=== PATIENT | female | born 1935 | race Caucasian/White ===

== ENCOUNTER 2020-01-02 01:00 | Emergency (ER) | payer OTHER ==
[2020-01-02 01:20] VITALS: TEMP 97.5; BMI 37.2
--- NOTE | 2020-01-02 01:41 | PDOC ---
History of Present Illness - History of Present Illness Initial Comments: The pt is an 84F w/ a history of HTN, HLD, IDDM who presents for evaluation of HTN. Pt denies vision changes, ALEMAN, SOB, N/V, abdominal pain Pt reports being compliant with meds. However she reports a high salt diet. Recently had Hydralazine and extra dose of Lasix added. Pt states that she felt slightly short of breath yesterday. Denies fevers, cough, dysuria, hematuria, rash. 01/02/20 01:40 <Al Rivers - Last Filed: 01/02/20 06:17> <Apryl Jackson - Last Filed: 01/02/20 06:40> - General Chief Complaint: Blood Pressure Problem Stated Complaint: BLOOD PRESSURE PROBLEM Past History - Past Medical History Diabetes: Yes HTN: Yes Hypercholesterolemia: Yes - Psycho Social/Smoking Cessation Hx Smoking History: Never smoked Have you smoked in the past 12 months: No Information on smoking cessation initiated: No Hx Alcohol Use: No Drug/Substance Use Hx: No <Al Rivers - Last Filed: 01/02/20 06:17> <Apryl Jackson - Last Filed: 01/02/20 06:40> - Past Medical History Allergies/Adverse Reactions: Allergies Allergy/AdvReac Type Severity Reaction Status Date / Time nitrofurantoin Allergy Verified 01/02/20 01:13 [From Macrobid] Sulfa (Sulfonamide Allergy Verified 01/02/20 01:13 Antibiotics) Home Medications: Ambulatory Orders Allopurinol [Zyloprim -] 1 tab PO DAILY 10/19/15 Aspirin Coated [Ecotrin -] 81 mg PO DAILY 10/19/15 Atorvastatin Ca [Lipitor -] 40 mg PO HS 10/19/15 Canagliflozin [Invokana] 100 mg PO DAILY 10/19/15 Carvedilol [Coreg] 12.5 mg PO BID 10/19/15 Diclofenac Sodium [Diclofenac Sodium ER] 100 mg PO ACBK 10/19/15 Ergocalciferol [Drisdol -] 50,000 unit PO Q7D@1000 10/19/15 Esomeprazole Mag Trihydrate [Nexium] 40 mg PO DAILY 10/19/15 Furosemide [Lasix -] 40 mg PO DAILY 10/19/15 Glipizide [Glucotrol Xl] 10 mg PO AC 10/19/15 Meclizine HCl [Antivert -] 12.5 mg PO HS 10/19/15 Mirabegron [Myrbetriq] 25 mg PO DAILY 10/19/15 Potassium Chloride [K-Dur] 10 meq PO DAILY 10/19/15 Sitagliptin Phos/Metformin HCl [Janumet Xr 50-1,000 mg Tablet] 1 each PO AC 07/26 Valsartan [Diovan] 320 mg PO DAILY 10/19/15 Review of Systems - Review of Systems Able to Perform ROS?: Yes Comments:: GENERAL/CONSTITUTIONAL: No fever or chills. No weakness HEAD, EYES, EARS, NOSE AND THROAT: No change in vision. No change in hearing. No sore throat CARDIOVASCULAR: No chest pain RESPIRATORY: Denies cough, hemoptysis GASTROINTESTINAL: No nausea, vomiting, diarrhea or constipation GENITOURINARY: No dysuria, frequency, or change in urination MUSCULOSKELETAL: No joint or muscle swelling or pain. No neck or back pain SKIN: No rash NEUROLOGIC: No headache, vertigo, loss of consciousness, or change in strength/ sensation ENDOCRINE: No increased thirst. No abnormal weight change HEMATOLOGIC/LYMPHATIC: No anemia, easy bleeding, or history of blood clots ALLERGIC/IMMUNOLOGIC: No hives or skin allergy 01/02/20 01:41 Is the patient limited Persian proficient: No <Al Rivers - Last Filed: 01/02/20 06:17> *Physical Exam - Vital Signs Last Vital Signs Temp Pulse Resp BP Pulse Ox 97.5 F L 60 32 H 213/65 H 01/02/20 01:13 01/02/20 01:13 01/02/20 01:13 01/02/20 01:13 - Physical Exam GENERAL: Awake, alert, and oriented to person/place/time, in no acute distress HEAD: No signs of trauma, normocephalic, atraumatic EYES: PERRLA, EOMI, sclera anicteric, conjunctiva clear ENT: Hearing grossly normal, nares patent, oropharynx clear without exudates. Moist mucosa LUNGS: No distress, speaks in full sentences, clear to auscultation bilaterally HEART: Regular rate and rhythm, normal S1 and S2, no murmurs appreciated, peripheral pulses normal and equal bilaterally ABDOMEN: Soft, nontender, normoactive bowel sounds. No guarding, no rebound EXTREMITIES: Normal inspection, Normal range of motion, no edema. No clubbing or cyanosis NEUROLOGICAL: Cranial nerves II through XII grossly intact. Normal speech, no focal sensorimotor deficits SKIN: Warm, Dry 01/02/20 01:41 <Al Rivers - Last Filed: 01/02/20 06:17> - Vital Signs Last Vital Signs Temp Pulse Resp BP Pulse Ox 97.5 F L 64 19 173/61 H 100 01/02/20 01:13 01/02/20 06:15 01/02/20 06:15 01/02/20 06:15 01/02/20 06:15 <Apryl Jackson - Last Filed: 01/02/20 06:40> ED Treatment Course - LABORATORY CBC & Chemistry Diagram: 01/02/20 02:20 01/02/20 02:20 <Al Rivers - Last Filed: 01/02/20 06:17> - LABORATORY CBC & Chemistry Diagram: 01/02/20 02:20 01/02/20 02:20 - ADDITIONAL ORDERS Additional order review: Laboratory Results 01/02/20 01/02/20 01/02/20 05:10 02:20 02:20 Sodium 143 Potassium 4.3 Chloride 108 H Carbon Dioxide 32 Anion Gap 3 L BUN 36.8 H Creatinine 1.4 H Est GFR (CKD-EPI)AfAm 39.33 Est GFR (CKD-EPI)NonAf 33.94 Random Glucose 156 H Calcium 9.7 Total Bilirubin 0.7 AST 26 ALT 27 Alkaline Phosphatase 153 H Troponin I 0.04 0.04 Total Protein 7.1 Albumin 3.9 01/02/20 02:20 RBC 4.39 MCV 86.7 MCHC 33.4 RDW 15.5 MPV 8.8 Neutrophils % 52.0 Lymphocytes % 37.1 Monocytes % 8.4 Eosinophils % 1.8 Basophils % 0.7 - Medications Given in the ED: ED Medications Discontinued Medications Generic Name Dose Route Start Last Admin Trade Name Freq PRN Reason Stop Dose Admin Furosemide 40 mg 01/02/20 03:42 01/02/20 04:12 Lasix Injection - IVPUSH 01/02/20 03:43 40 mg ONCE ONE Administration Nitroglycerin 0.4 mg 01/02/20 01:55 01/02/20 02:42 Nitrostat - SL 01/02/20 01:56 0.4 mg ONCE ONE Administration <Apryl Jackson - Last Filed: 01/02/20 06:40> Medical Decision Making - Medical Decision Making The pt is an 84F w/ a history of HTN, HLD, IDDM who presents for evaluation of HTN w/ SOB yesterday ED Course CMP, CBC, Trop I ECG CXR ECG w/ sinus faith; HR 56; QTc 436; no axis deviation; no PARAS Initial Trop I neg Lytes unremarkable Cr at baseline LFTs wnl CXR w/ poor inspiratory effort, no focal infiltrate, no effusion Will repeat Trop I Pt continues to be asymptomatic 01/02/20 05:05 Pt to follow up with her Patient Services Rep on Saturday Plan for D/C w/ Cards/PCP f/u Discharge instructions and return precautions given Patient in agreement and verbalized understanding Dispo: Home <Al Rivers - Last Filed: 01/02/20 06:17> Discharge - Discharge Information Problems reviewed: Yes - Admission No <Al Rivers - Last Filed: 01/02/20 06:17> <Apryl Jackson - Last Filed: 01/02/20 06:40> - Discharge Information Clinical Impression/Diagnosis: Hypertension Qualifiers: Hypertension type: unspecified Qualified Code(s): I10 - Essential (primary) hypertension Condition: Stable - Follow up/Referral Referrals: Barney Wyman [Primary Care Provider] - - Patient Discharge Instructions Patient Printed Discharge Instructions: DI for High Blood Pressure Additional Instructions: You were seen in the Emergency Department for evaluation of high blood pressure. Your labs were unremarkable. Review the handout provided at discharge. Maintain your follow up Saturday with your doctor. Return to the Emergency Department if you develop fevers, chest pain, trouble breathing, worsening symptoms, or any new/concerning symptoms. Lo vieron en el departamento de emergencias para evaluar la presin arterial jeovany. Radha laboratorios no fueron notables. Revise el folleto proporcionado al jeovany. Mantenga bradshaw seguimiento el con bradshaw mdico. Regrese al Departamento de Emergencias si desarrolla fiebre, dolor en el pecho, dificultad para respirar, empeoramiento de los sntomas o cualquier sntoma nuevo o preocupante. Print Language: LEBANESE - Post Discharge Activity Work/Back to School Note: Back to Work
[2020-01-02] MEDS ORDERED: NITROGLYCERIN SUBLINGUAL 1/150 0.4 MG TAB SL ONE (01:55)
[2020-01-02 02:29] LABS: BASO % 0.7 % (0-2.0); EOS % 1.8 % (0-4.5); HEMATOCRIT 38.1 % (32.4-45.2); HEMOGLOBIN 12.7 GM/dL (10.7-15.3); LYMPH % 37.1 % (8-40); MCHC 33.4 g/dl (32.0-36.0); MEAN CELL VOLUME 86.7 fl (80-96); MEAN PLT VOLUME 8.8 fl (7.5-11.1); MONO % 8.4 % (3.8-10.2); PLATELET COUNT 174 K/MM3 (134-434); RBC 4.39 M/mm3 (3.60-5.2); RDW 15.5 % (11.6-15.6); WHITE BLOOD COUNT 8.8 K/mm3 (4.0-10.0)
[2020-01-02] MEDS ORDERED: NITROGLYCERIN SUBLINGUAL 1/150 0.4 MG TAB ONE (02:37)
[2020-01-02 02:51] VITALS: PULSE 64
[2020-01-02 03:09] LABS: ALBUMIN 3.9 g/dl (3.4-5.0); BILIRUBIN,TOTAL 0.7 mg/dL (0.2-1); BLOOD UREA NITROGEN 36.8 mg/dL (7-18); CALCIUM 9.7 mg/dL (8.5-10.1); CREATININE 1.4 mg/dL (0.55-1.3); POTASSIUM 4.3 mmol/L (3.5-5.1); TOT PROT 7.1 g/dl (6.4-8.2)
[2020-01-02] MEDS ORDERED: FUROSEMIDE 40 MG/4 ML INJECTABLE VIAL IVPUSH ONE (03:42)
--- NOTE | 2020-01-02 03:45 | PDOC ---
Attending Attestation - Resident Resident Name: Al Rivers - ED Attending Attestation I have performed the following: I have examined & evaluated the patient, The case was reviewed & discussed with the resident, I agree w/resident's findings & plan - HPI HPI: 01/02/20 03:44 Pt comes with SOB and shoulder discomfort and non complaince with her lasix. She is complaint with her hydralazine, coreg and diovan. - Physicial Exam PE: 01/02/20 03:51 Bilat lower lobes: crackles Pt has minimal pitting edema Pt has no fever and no chills. SHe has no SOB; however pulsox odd O2 is 92%-95% Pt has normal lung sounds HR RRR neuro intact - Medical Decision Making 01/02/20 06:43 Pt's BP has come down to 150-170 systolic. Pt was treated with a dose of 40mg IV lasix Pt will be sent home with cardiology follow up Saturday AM as previously scheduled.
[2020-01-02] MEDS ORDERED: FUROSEMIDE 40 MG/4 ML INJECTABLE VIAL ONE (04:08)
[2020-01-02 06:28] VITALS: BP 173/61
--- NOTE | 2020-01-02 10:33 | EKG ---
Test Reason : Blood Pressure : / mmHG Vent. Rate : 056 BPM Atrial Rate : 056 BPM P-R Int : 116 ms QRS Dur : 080 ms QT Int : 452 ms P-R-T Axes : 015 -07 025 degrees QTc Int : 436 ms SINUS BRADYCARDIA OTHERWISE NORMAL ECG WHEN COMPARED WITH ECG OF 07-MAR-2011 13:25, NO SIGNIFICANT CHANGE WAS FOUND Confirmed by BINA CHOUDHARY MD ([id number]) on 01/02/2020 10:33:29 AM Referred By: Confirmed By:BINA CHOUDHARY MD
== END 2020-01-02 06:55 | disposition home or self-care (01) ==
LOC: JER 01:00
PROC: 3E033GC Introduction of Other Therapeutic Substance into Peripheral Vein, Percutaneous Approach (ICD-10-PCS; principal; 2020-01-02)
DX: I10 Essential (primary) hypertension (principal); E78.5 Hyperlipidemia, unspecified; E11.9 Type 2 diabetes mellitus without complications; Z79.84 Long term (current) use of oral hypoglycemic drugs; Z88.2 Allergy status to sulfonamides
CPT/HCPCS: 36415; 71045-TC-FY; 80053; 84484; 85025; 93005; 93010; 96374; 99285-25

== ENCOUNTER 2021-11-18 20:40 | Inpatient (IN) | payer OTHER ==
[2021-11-18] MEDS ORDERED: RAPID SEQUENCE INTUBATION KIT NR ONE (20:47)
[2021-11-18] MEDS ORDERED: PROPOFOL 1,000,000 MCG/100 ML VIAL ONE (21:10)
[2021-11-18] MEDS ORDERED: CALCIUM GLUCONATE 10% - 1,000 MG/10 ML VIAL ONE ×2 (21:21→23:17)
[2021-11-18 21:41] LABS: BASO % 0.4 % (0-2.0); EOS % 1.4 % (0-4.5); HEMATOCRIT 34.2 % (32.4-45.2); HEMOGLOBIN 11.5 GM/dL (10.7-15.3); LYMPH % 27.7 % (8-40); MCH 29.9 pg (25.7-33.7); MCHC 33.6 g/dl (32.0-36.0); MEAN PLT VOLUME 9.3 fl (7.5-11.1); MONO % 5.3 % (3.8-10.2); NEUT % 65.2 % (42.8-82.8); PLATELET COUNT 145 10^3/uL (134-434); RBC 3.84 M/mm3 (3.60-5.2); RDW 14.2 % (11.6-15.6); WHITE BLOOD COUNT 10.4 K/mm3 (4.0-10.0)
[2021-11-18] MEDS ORDERED: GLUCAGON 1 MG KIT IVPUSH ONE ×2 (21:46→21:58)
[2021-11-18] MEDS ORDERED: GLUCAGON 1 MG KIT ONE (21:47)
[2021-11-18] MEDS ORDERED: ATROPINE SULFATE 1 MG/10 ML DISP.SYRIN ONE (21:49)
[2021-11-18 21:51] LABS: INR 1.12 (0.83-1.09); PROTHROMBIN TIME (PATIENT) 12.9 SEC (9.7-13.0)
[2021-11-18 21:54] LABS: ACTIVATED PTT 33.5 SECONDS (25.2-36.5)
[2021-11-18] MEDS ORDERED: ATROPINE SULFATE 1 MG/10 ML DISP.SYRIN IVPUSH ONE ×3 (21:59)
[2021-11-18 22:02] LABS: CHLORIDE 96 mmol/L (98-107); SODIUM 128 mmol/L (136-145)
[2021-11-18 22:04] LABS: ALBUMIN 3.5 g/dl (3.4-5.0); CALCIUM 8.5 mg/dL (8.5-10.1); CO2 25 mmol/L (21-32); GLUCOSE,RANDOM 124 mg/dL (74-106)
[2021-11-18 22:05] LABS: BLOOD UREA NITROGEN 59.2 mg/dL (7-18); MAGNESIUM 2.7 mg/dL (1.8-2.4)
[2021-11-18 22:07] LABS: CREATININE 2.5 mg/dL (0.55-1.3); SGOT/AST 113 U/L (15-37); SGPT/ALT 129 U/L (13-61)
[2021-11-18 22:09] LABS: TOT PROT 6.8 g/dl (6.4-8.2)
[2021-11-18 22:10] LABS: ALK PHOS 189 U/L (45-117)
[2021-11-18 22:15] LABS: BILIRUBIN,TOTAL 1.2 mg/dL (0.2-1)
[2021-11-18 22:21] LABS: ANION GAP 7 MMOL/L (8-16); LACTIC ACID 3.3 mmol/L (0.4-2.0)
[2021-11-18] MEDS ORDERED: CALCIUM GLUCONATE 10% - 1,000 MG/10 ML VIAL IVPUSH ONE (22:26)
[2021-11-18] MEDS ORDERED: INSULIN REGULAR HUMAN 100 UNITS/ML *VIAL IVPUSH ONE (22:26)
[2021-11-18] MEDS ORDERED: DEXTROSE 50%-WATER - 25 GM/50 ML VIAL IVPUSH ONE (22:26)
[2021-11-18] MEDS: NOREPINEPHRINE D5W PREMIX 16,000 MCG/500 ML BAG IVPB SCH (22:28)
[2021-11-18] MEDS: PROPOFOL 1,000,000 MCG/100 ML VIAL IVPB SCH (22:37)
[2021-11-18 22:54] LABS: ARTERIAL BLD GAS O2 SATURATION 96.4 % (95-98); ARTERIAL BLOOD GAS BASE EXCESS -8.1 mmol/L (-2-2); ARTERIAL BLOOD GAS PO2 115.1 mmHg (80-100)
[2021-11-18 22:57] LABS: ALLENS TEST POSITIVE; VENT MODE A/C; VENT RATE 16
[2021-11-18 23:00] LABS: ARTERIAL BLOOD GAS pH 7.103 (7.350-7.450)
[2021-11-18] MEDS ORDERED: FUROSEMIDE 40 MG/4 ML INJECTABLE VIAL IVPUSH ONE (23:04)
[2021-11-18] MEDS ORDERED: SODIUM CHLORIDE 0.9% 500 ML INFUS.BAG IV ONE (23:16)
[2021-11-18] MEDS ORDERED: SODIUM BICARBONATE 8.4% 50 MEQ/50 ML VIAL IV ONE (23:16)
[2021-11-18] MEDS ORDERED: CALCIUM GLUC IN NACL, ISO-OSM 1 GM/50 ML BAG IVPB ONE (23:16)
[2021-11-18] MEDS ORDERED: ALBUTEROL SO4 2.5/IPRATROPIUM 0.5 INH SOL 3 ML VIAL.NEB. NEB ONE (23:17)
[2021-11-18] MEDS ORDERED: SODIUM BICARBONATE 8.4% - 50 ML ONE (23:18)
[2021-11-18] MEDS ORDERED: FUROSEMIDE 40 MG/4 ML INJECTABLE VIAL ONE (23:18)
[2021-11-18] MEDS: ALBUTEROL SO4 2.5/IPRATROPIUM 0.5 INH SOL 3 ML VIAL.NEB. NEB SCH ×2 (23:26→23:47)
[2021-11-19] MEDS: ALBUTEROL SO4 2.5/IPRATROPIUM 0.5 INH SOL 3 ML VIAL.NEB. NEB SCH
[2021-11-19 00:14] LABS: EPI CELLS >36 /uL (0-25.1); HYALINE CASTS 4 /uL (0-3.1); URINE APPEARANCE CLOUDY; URINE BACTERIA 731 /uL (0-1359); URINE BILIRUBIN NEGATIVE (NEGATIVE); URINE COLOR YELLOW; URINE GLUCOSE (UA) 3+ (NEGATIVE); URINE KETONE NEGATIVE (NEGATIVE); URINE LEUK ESTERASE NEGATIVE (NEGATIVE); URINE NITRITE NEGATIVE (NEGATIVE); URINE PROTEIN 3+ (NEGATIVE); URINE RBC 26 /uL (0-23.9)
[2021-11-19 00:24] LABS: CALCIUM 9.7 mg/dL (8.5-10.1); MAGNESIUM 2.8 mg/dL (1.8-2.4)
[2021-11-19 00:25] LABS: BLOOD UREA NITROGEN 63.2 mg/dL (7-18)
[2021-11-19 00:28] LABS: CREATININE 2.7 mg/dL (0.55-1.3); PHOSPHOROUS 6.4 mg/dL (2.5-4.9)
[2021-11-19] MEDS ORDERED: ALBUTEROL SO4 0.5 % INH SOLN 2.5 MG/0.5 ML VIAL.NEB. NEB ONE ×2 (00:40→00:53)
[2021-11-19] MEDS ORDERED: CALCIUM CHLORIDE 10% 1 GM/10 ML *VIAL IVPUSH ONE (00:40)
[2021-11-19] MEDS ORDERED: INSULIN REGULAR HUMAN 100 UNITS/ML *VIAL IVPUSH ONE (00:40)
[2021-11-19] MEDS ORDERED: DEXTROSE 50%-WATER - 25 GM/50 ML VIAL IVPUSH ONE (00:40)
[2021-11-19] MEDS ORDERED: DEXTROSE 50%-WATER 25 GM/50 ML DISP.SYRIN ONE (00:54)
[2021-11-19] MEDS ORDERED: CALCIUM GLUCONATE 10% - 1,000 MG/10 ML VIAL ONE (00:54)
[2021-11-19] MEDS ORDERED: CALCIUM GLUCONATE 10% - 1,000 MG/10 ML VIAL IVPUSH ONE (00:55)
[2021-11-19] MEDS ORDERED: DOPAMINE 400 MG/D5W - 400,000 MCG/250 ML INFUS.BAG IVPB ONE ×3 (01:53→23:57)
[2021-11-19] MEDS ORDERED: PROPOFOL 1,000,000 MCG/100 ML VIAL ONE (02:00)
[2021-11-19] MEDS: DOPAMINE HCL 400,000 MCG in SODIUM CHLORIDE 240 ML IV SCH (02:06)
[2021-11-19] MEDS: SODIUM CHLORIDE 1,000 ML IV SCH (03:40)
[2021-11-19 03:56] LABS: URINE WBC 99.7 /uL (0-25.8)
[2021-11-19 06:07] LABS: ARTERIAL BLD GAS O2 SATURATION 97.4 % (95-98); ARTERIAL BLOOD GAS BASE EXCESS -3.5 mmol/L (-2-2); ARTERIAL BLOOD GAS PO2 113.1 mmHg (80-100)
[2021-11-19 06:09] LABS: VENT MODE V-A/C; VENT RATE 16
[2021-11-19 06:32] LABS: BASO % 0.1 % (0-2.0); EOS % 0.2 % (0-4.5); HEMOGLOBIN 10.9 GM/dL (10.7-15.3); LYMPH % 8.5 % (8-40); MCH 29.1 pg (25.7-33.7); MEAN PLT VOLUME 9.4 fl (7.5-11.1); MONO % 8.4 % (3.8-10.2); NEUT % 82.8 % (42.8-82.8); PLATELET COUNT 141 10^3/uL (134-434); RBC 3.74 M/mm3 (3.60-5.2); RDW 13.9 % (11.6-15.6); WHITE BLOOD COUNT 14.7 K/mm3 (4.0-10.0)
[2021-11-19 07:00] LABS: CALCIUM 9.2 mg/dL (8.5-10.1)
[2021-11-19 07:01] LABS: ALBUMIN 3.2 g/dl (3.4-5.0); BLOOD UREA NITROGEN 60.5 mg/dL (7-18); MAGNESIUM 2.6 mg/dL (1.8-2.4)
[2021-11-19 07:04] LABS: CREATININE 2.5 mg/dL (0.55-1.3); PHOSPHOROUS 4.8 mg/dL (2.5-4.9)
[2021-11-19 07:05] LABS: BILIRUBIN,TOTAL 1.5 mg/dL (0.2-1)
[2021-11-19] MEDS: HEPARIN NA (PORCINE) 5,000 UNITS/ML 1ML VIAL SQ SCH ×3 (07:12→21:35)
[2021-11-19] MEDS: INSULIN SLIDING SCALE (NOVOLOG) 1 VIAL SQ SCH ×4 (07:13→21:35)
[2021-11-19 08:30] LABS: INR 1.15 (0.83-1.09); PROTHROMBIN TIME (PATIENT) 13.2 SEC (9.7-13.0)
[2021-11-19] MEDS: PROPOFOL 1,000,000 MCG/100 ML VIAL IVPB SCH ×2 (08:30→23:26)
[2021-11-19 08:32] LABS: ACTIVATED PTT 25.9 SECONDS (25.2-36.5)
[2021-11-19 09:13] LABS: CREATININE, URINE RANDOM < 13.0 mg/dL (30-150)
[2021-11-19] MEDS ORDERED: DEXTROSE 5%-WATER - 50 ML IVPB ONE ×3 (09:24→23:57)
[2021-11-19] MEDS ORDERED: PIPERACILLIN/TAZOBACTAM 2.25 GM VIAL IVPB ONE ×3 (09:24→23:57)
[2021-11-19] MEDS: PANTOPRAZOLE SODIUM 40 MG VIAL IVPUSH SCH (09:42)
[2021-11-19] MEDS ORDERED: PIPERACILLIN/TAZOB 2.25 GM 2.25 GM in DEXTROSE 5%-WATER - 50 ML IVPB SCH (10:00)
[2021-11-19] MEDS ORDERED: VANCOMYCIN 1 GRAM (PRE-DOCKED) 1,000 MG/250 ML BAG IVPB ONE (11:00)
[2021-11-19] MEDS: MUPIROCIN 2% TOPICAL OINTMENT FOR DECOLONIZATION NS SCH ×2 (11:48→21:35)
[2021-11-19] MEDS ORDERED: SODIUM ZIRCONIUM CYCLOSILICATE (LOKELMA) 5 GM PACKET PO ONE (12:45)
[2021-11-19] MEDS: PIPERACILLIN/TAZOB 2.25 GM 2.25 GM in DEXTROSE 5%-WATER - 50 ML IVPB SCH (18:05)
[2021-11-19] MEDS: CHLORHEXIDINE GLUCONATE 4% CLEANSER FOR DECOLONIZATION TP SCH (21:35)
[2021-11-19] MEDS: NOREPINEPHRINE D5W PREMIX 16,000 MCG/500 ML BAG IVPB SCH (23:26)
[2021-11-20] MEDS: PIPERACILLIN/TAZOB 2.25 GM 2.25 GM in DEXTROSE 5%-WATER - 50 ML IVPB SCH ×3 (02:53→17:55)
[2021-11-20] MEDS: DOPAMINE HCL 400,000 MCG in SODIUM CHLORIDE 240 ML IV SCH (02:53)
[2021-11-20] MEDS: SODIUM CHLORIDE 1,000 ML IV SCH (03:27)
[2021-11-20] MEDS: HEPARIN NA (PORCINE) 5,000 UNITS/ML 1ML VIAL SQ SCH ×3 (06:25→21:47)
[2021-11-20] MEDS: INSULIN SLIDING SCALE (NOVOLOG) 1 VIAL SQ SCH ×4 (06:26→21:30)
[2021-11-20 06:37] LABS: ARTERIAL BLOOD GAS BASE EXCESS 4.7 mmol/L (-2-2); ARTERIAL BLOOD GAS PO2 76.1 mmHg (80-100); ARTERIAL BLOOD GAS pH 7.474 (7.350-7.450)
[2021-11-20 06:53] LABS: ALLENS TEST POSITIVE; VENT MODE A/C; VENT RATE 20
[2021-11-20 07:05] LABS: BASO % 0.5 % (0-2.0); HEMATOCRIT 35.1 % (32.4-45.2); HEMOGLOBIN 11.7 GM/dL (10.7-15.3); LYMPH % 13.5 % (8-40); MCH 28.8 pg (25.7-33.7); MCHC 33.3 g/dl (32.0-36.0); MEAN CELL VOLUME 86.5 fl (80-96); MEAN PLT VOLUME 8.8 fl (7.5-11.1); MONO % 6.7 % (3.8-10.2); NEUT % 77.3 % (42.8-82.8); PLATELET COUNT 137 10^3/uL (134-434); RBC 4.06 M/mm3 (3.60-5.2); RDW 14.7 % (11.6-15.6); WHITE BLOOD COUNT 12.1 K/mm3 (4.0-10.0)
[2021-11-20 07:19] LABS: CALCIUM 8.1 mg/dL (8.5-10.1)
[2021-11-20 07:20] LABS: ALBUMIN 2.6 g/dl (3.4-5.0); BLOOD UREA NITROGEN 48.2 mg/dL (7-18); MAGNESIUM 1.9 mg/dL (1.8-2.4)
[2021-11-20 07:22] LABS: PHOSPHOROUS 3.8 mg/dL (2.5-4.9)
[2021-11-20 07:23] LABS: BILIRUBIN,TOTAL 1.5 mg/dL (0.2-1)
[2021-11-20 07:24] LABS: TOT PROT 5.5 g/dl (6.4-8.2)
[2021-11-20] MEDS ORDERED: PIPERACILLIN/TAZOBACTAM 2.25 GM VIAL IVPB ONE ×2 (09:39→17:52)
[2021-11-20] MEDS ORDERED: DEXTROSE 5%-WATER - 50 ML IVPB ONE ×2 (09:39→17:53)
[2021-11-20] MEDS: PANTOPRAZOLE SODIUM 40 MG VIAL IVPUSH SCH (09:59)
[2021-11-20] MEDS: MUPIROCIN 2% TOPICAL OINTMENT FOR DECOLONIZATION NS SCH ×2 (09:59→21:48)
[2021-11-20] MEDS ORDERED: DOPAMINE 400 MG/D5W - 400,000 MCG/250 ML INFUS.BAG IVPB ONE (12:02)
[2021-11-20] MEDS ORDERED: PT OWN MED DRAWER 7, Y5N ONE (15:44)
[2021-11-20] MEDS ORDERED: PIPERACILLIN/TAZOB 2.25 GM 2.25 GM in DEXTROSE 5%-WATER - 50 ML IVPB SCH (18:00)
[2021-11-20] MEDS: CHLORHEXIDINE GLUCONATE 4% CLEANSER FOR DECOLONIZATION TP SCH (21:48)
[2021-11-20] MEDS: NOREPINEPHRINE D5W PREMIX 16,000 MCG/500 ML BAG IVPB SCH (22:30)
[2021-11-21] MEDS ORDERED: PIPERACILLIN/TAZOBACTAM 2.25 GM VIAL IVPB ONE ×3 (00:36→18:10)
[2021-11-21] MEDS ORDERED: DEXTROSE 5%-WATER - 50 ML IVPB ONE ×3 (00:37→18:11)
[2021-11-21] MEDS: DOPAMINE HCL 400,000 MCG in SODIUM CHLORIDE 240 ML IV SCH (01:45)
[2021-11-21] MEDS: PROPOFOL 1,000,000 MCG/100 ML VIAL IVPB SCH ×2 (02:00→22:57)
[2021-11-21] MEDS: PIPERACILLIN/TAZOB 2.25 GM 2.25 GM in DEXTROSE 5%-WATER - 50 ML IVPB SCH ×3 (02:04→18:22)
[2021-11-21] MEDS: SODIUM CHLORIDE 1,000 ML IV SCH ×2 (03:00→15:12)
[2021-11-21] MEDS ORDERED: DOPAMINE 400 MG/D5W - 400,000 MCG/250 ML INFUS.BAG IVPB ONE (06:42)
[2021-11-21] MEDS: HEPARIN NA (PORCINE) 5,000 UNITS/ML 1ML VIAL SQ SCH ×3 (06:46→21:23)
[2021-11-21 06:59] LABS: BASO % 0.5 % (0-2.0); EOS % 2.8 % (0-4.5); HEMATOCRIT 29.4 % (32.4-45.2); HEMOGLOBIN 10.3 GM/dL (10.7-15.3); LYMPH % 20.8 % (8-40); MEAN CELL VOLUME 85.8 fl (80-96); MEAN PLT VOLUME 8.4 fl (7.5-11.1); MONO % 8.1 % (3.8-10.2); NEUT % 67.8 % (42.8-82.8); PLATELET COUNT 119 10^3/uL (134-434); RBC 3.43 M/mm3 (3.60-5.2); RDW 14.9 % (11.6-15.6); WHITE BLOOD COUNT 9.8 K/mm3 (4.0-10.0)
[2021-11-21 07:24] LABS: ALBUMIN 2.3 g/dl (3.4-5.0); CALCIUM 7.8 mg/dL (8.5-10.1); CREATININE 1.4 mg/dL (0.55-1.3)
[2021-11-21 07:25] LABS: BLOOD UREA NITROGEN 32.6 mg/dL (7-18)
[2021-11-21 07:26] LABS: TOT PROT 4.8 g/dl (6.4-8.2)
[2021-11-21 07:27] LABS: PHOSPHOROUS 2.9 mg/dL (2.5-4.9)
[2021-11-21] MEDS: INSULIN SLIDING SCALE (NOVOLOG) 1 VIAL SQ SCH ×4 (07:46→21:23)
[2021-11-21] MEDS: PANTOPRAZOLE SODIUM 40 MG VIAL IVPUSH SCH (10:50)
[2021-11-21] MEDS: MUPIROCIN 2% TOPICAL OINTMENT FOR DECOLONIZATION NS SCH ×2 (10:50→21:23)
[2021-11-21 13:10] LABS: N-TERMINAL BNP 4076.3 pg/ml (5-450)
[2021-11-21 17:34] LABS: ARTERIAL BLD GAS O2 SATURATION 98.9 % (95-98); ARTERIAL BLOOD GAS BASE EXCESS 2.1 mmol/L (-2-2); ARTERIAL BLOOD GAS PO2 160.4 mmHg (80-100); ARTERIAL BLOOD GAS pH 7.346 (7.350-7.450)
[2021-11-21 17:38] LABS: ALLENS TEST POSITIVE
[2021-11-21] MEDS ORDERED: METOPROLOL TARTRATE 5 MG/5 ML VIAL IVPUSH ONE ×3 (20:54→21:55)
[2021-11-21] MEDS ORDERED: METOPROLOL TARTRATE 5 MG/5 ML VIAL ONE (20:57)
[2021-11-21] MEDS: CHLORHEXIDINE GLUCONATE 4% CLEANSER FOR DECOLONIZATION TP SCH (21:23)
[2021-11-21] MEDS: KCL 10 MEQ IVPB 10 MEQ/100 ML INFUS.BAG IVPB SCH ×2 (21:39→22:57)
[2021-11-21] MEDS ORDERED: dilTIAZem HCL 50 MG/10 ML - 10 ML VIAL IVPUSH ONE ×2 (22:24→22:27)
[2021-11-21] MEDS: NOREPINEPHRINE D5W PREMIX 16,000 MCG/500 ML BAG IVPB SCH (22:58)
[2021-11-21] MEDS ORDERED: dilTIAZem HCL 125 MG/25 ML - 25 ML VIAL ONE (22:59)
[2021-11-22] MEDS ORDERED: NOREPINEPHRINE BITARTRATE 16,000 MCG in DEXTROSE 5%-WATER - 16,000 MCG/500 ML INFUS.BAG IVPB SCH (00:18)
[2021-11-22] MEDS: PIPERACILLIN/TAZOB 2.25 GM 2.25 GM in DEXTROSE 5%-WATER - 50 ML IVPB SCH ×3 (01:23→17:36)
[2021-11-22] MEDS: DOPAMINE HCL 400,000 MCG in SODIUM CHLORIDE 240 ML IV SCH (06:12)
[2021-11-22] MEDS: SODIUM CHLORIDE 1,000 ML IV SCH (06:12)
[2021-11-22] MEDS: INSULIN SLIDING SCALE (NOVOLOG) 1 VIAL SQ SCH ×4 (06:12→21:53)
[2021-11-22] MEDS: HEPARIN NA (PORCINE) 5,000 UNITS/ML 1ML VIAL SQ SCH ×2 (06:12→13:39)
[2021-11-22 07:04] LABS: BASO % 0.5 % (0-2.0); EOS % 1.4 % (0-4.5); HEMATOCRIT 32.9 % (32.4-45.2); HEMOGLOBIN 10.6 GM/dL (10.7-15.3); LYMPH % 17.2 % (8-40); MCH 28.3 pg (25.7-33.7); MCHC 32.3 g/dl (32.0-36.0); MEAN CELL VOLUME 87.7 fl (80-96); MEAN PLT VOLUME 8.1 fl (7.5-11.1); MONO % 10.5 % (3.8-10.2); NEUT % 70.4 % (42.8-82.8); PLATELET COUNT 125 10^3/uL (134-434); RBC 3.75 M/mm3 (3.60-5.2)
[2021-11-22 07:05] LABS: ALLENS TEST POSITIVE; ARTERIAL BLD GAS O2 SATURATION 94.4 % (95-98); ARTERIAL BLOOD GAS PO2 77.5 mmHg (80-100); ARTERIAL BLOOD GAS pH 7.323 (7.350-7.450)
[2021-11-22 07:19] LABS: ALBUMIN 2.7 g/dl (3.4-5.0); CALCIUM 8.4 mg/dL (8.5-10.1)
[2021-11-22 07:20] LABS: BLOOD UREA NITROGEN 25.2 mg/dL (7-18); MAGNESIUM 2.1 mg/dL (1.8-2.4)
[2021-11-22 07:21] LABS: CREATININE 1.2 mg/dL (0.55-1.3)
[2021-11-22 07:23] LABS: BILIRUBIN,TOTAL 1.2 mg/dL (0.2-1); PHOSPHOROUS 3.2 mg/dL (2.5-4.9); TOT PROT 5.4 g/dl (6.4-8.2)
[2021-11-22] MEDS ORDERED: PIPERACILLIN/TAZOBACTAM 2.25 GM VIAL IVPB ONE ×3 (10:04→17:30)
[2021-11-22] MEDS ORDERED: DEXTROSE 5%-WATER - 50 ML IVPB ONE ×3 (10:04→17:31)
[2021-11-22] MEDS: MUPIROCIN 2% TOPICAL OINTMENT FOR DECOLONIZATION NS SCH ×2 (10:12→21:48)
[2021-11-22] MEDS: PANTOPRAZOLE SODIUM 40 MG VIAL IVPUSH SCH (10:12)
[2021-11-22] MEDS ORDERED: SODIUM CHLORIDE 0.45% 1,000 ML IV SCH (13:15)
[2021-11-22] MEDS ORDERED: D5-1/2NS+20 MEQ KCL - 20 MEQ/1,000 ML INFUS.BAG IV SCH (13:15)
[2021-11-22] MEDS: metoPROLOL SUCCINATE 25 MG TAB.SR.24H (FP) PO SCH (17:36)
[2021-11-22] MEDS ORDERED: dilTIAZem HCL 50 MG/10 ML - 10 ML VIAL IVPUSH PRN (20:59)
[2021-11-22] MEDS: ENOXAPARIN NA (PORCINE) 80 MG/0.8 ML DISP.SYRIN SQ SCH (21:46)
[2021-11-22] MEDS: CHLORHEXIDINE GLUCONATE 4% CLEANSER FOR DECOLONIZATION TP SCH (21:48)
[2021-11-22] MEDS ORDERED: APIXABAN 5 MG TABLET PO SCH (22:00)
[2021-11-22] MEDS: PROPOFOL 1,000,000 MCG/100 ML VIAL IVPB SCH (22:46)
[2021-11-22] MEDS ORDERED: hydrALAZINE HCL 20 MG/ML VIAL IVPUSH ONE (23:15)
[2021-11-23] MEDS ORDERED: PIPERACILLIN/TAZOBACTAM 2.25 GM VIAL IVPB ONE ×3 (00:08→16:24)
[2021-11-23] MEDS ORDERED: DEXTROSE 5%-WATER - 50 ML IVPB ONE ×3 (00:09→16:24)
[2021-11-23] MEDS ORDERED: dilTIAZem HCL 50 MG/10 ML - 10 ML VIAL IVPUSH ONE (01:51)
[2021-11-23] MEDS: PIPERACILLIN/TAZOB 2.25 GM 2.25 GM in DEXTROSE 5%-WATER - 50 ML IVPB SCH ×3 (02:36→18:00)
[2021-11-23] MEDS ORDERED: METOPROLOL TARTRATE 5 MG/5 ML VIAL IVPUSH ONE (05:27)
[2021-11-23] MEDS: DOPAMINE HCL 400,000 MCG in SODIUM CHLORIDE 240 ML IV SCH (05:38)
[2021-11-23] MEDS ORDERED: morphine CARPU-JECT 2 MG/1 ML DISP.SYRIN IVPUSH ONE (05:45)
[2021-11-23] MEDS: INSULIN SLIDING SCALE (NOVOLOG) 1 VIAL SQ SCH ×4 (06:22→21:37)
[2021-11-23 06:53] LABS: BASO % 0.8 % (0-2.0); EOS % 1.6 % (0-4.5); HEMOGLOBIN 10.4 GM/dL (10.7-15.3); LYMPH % 17.2 % (8-40); MCH 28.8 pg (25.7-33.7); MCHC 32.4 g/dl (32.0-36.0); MEAN CELL VOLUME 88.9 fl (80-96); MEAN PLT VOLUME 8.6 fl (7.5-11.1); MONO % 12.6 % (3.8-10.2); NEUT % 67.8 % (42.8-82.8); PLATELET COUNT 140 10^3/uL (134-434); RDW 14.6 % (11.6-15.6); WHITE BLOOD COUNT 10.2 K/mm3 (4.0-10.0)
[2021-11-23 07:13] LABS: BLOOD UREA NITROGEN 24.3 mg/dL (7-18); CALCIUM 8.6 mg/dL (8.5-10.1); MAGNESIUM 2.1 mg/dL (1.8-2.4)
[2021-11-23 07:14] LABS: ALBUMIN 2.5 g/dl (3.4-5.0)
[2021-11-23 07:17] LABS: CREATININE 1.2 mg/dL (0.55-1.3); PHOSPHOROUS 3.1 mg/dL (2.5-4.9)
[2021-11-23 07:18] LABS: BILIRUBIN,TOTAL 0.9 mg/dL (0.2-1); TOT PROT 5.3 g/dl (6.4-8.2)
[2021-11-23] MEDS ORDERED: METOPROLOL TARTRATE 5 MG/5 ML VIAL IVPUSH PRN ×2 (08:28→10:38)
[2021-11-23] MEDS ORDERED: D5-1/2NS+20 MEQ KCL - 20 MEQ/1,000 ML INFUS.BAG IV SCH (08:33)
[2021-11-23] MEDS ORDERED: FUROSEMIDE 40 MG/4 ML INJECTABLE VIAL IVPUSH ONE (10:00)
[2021-11-23] MEDS ORDERED: metoPROLOL SUCCINATE 25 MG TAB.SR.24H (FP) PO SCH (10:08)
[2021-11-23] MEDS: ENOXAPARIN NA (PORCINE) 80 MG/0.8 ML DISP.SYRIN SQ SCH ×2 (10:08→21:37)
[2021-11-23] MEDS: PANTOPRAZOLE SODIUM 40 MG VIAL IVPUSH SCH (10:08)
[2021-11-23] MEDS: MUPIROCIN 2% TOPICAL OINTMENT FOR DECOLONIZATION NS SCH ×2 (10:09→21:37)
[2021-11-23] MEDS: metoPROLOL SUCCINATE 25 MG TAB.SR.24H (FP) PO SCH ×2 (11:12→13:09)
[2021-11-23] MEDS: METOPROLOL TARTRATE 5 MG/5 ML VIAL IVPUSH PRN (13:19)
[2021-11-23] MEDS: LACTOBACILLUS ACIDOPHILUS 1 TABLET PO SCH (13:20)
[2021-11-23] MEDS: CHLORHEXIDINE GLUCONATE 4% CLEANSER FOR DECOLONIZATION TP SCH (21:37)
[2021-11-23] MEDS: FAMOTIDINE 20 MG/50 ML IVPB 20 MG/50 ML MG IVPB SCH (21:38)
[2021-11-23] MEDS ORDERED: QUEtiapine FUMARATE 25 MG TABLET PO ONE (21:57)
[2021-11-23] MEDS: MELATONIN 5 MG TABLETS PO SCH (22:33)
[2021-11-24] MEDS ORDERED: PIPERACILLIN/TAZOBACTAM 2.25 GM VIAL IVPB ONE ×4 (01:56→17:05)
[2021-11-24] MEDS: PIPERACILLIN/TAZOB 2.25 GM 2.25 GM in DEXTROSE 5%-WATER - 50 ML IVPB SCH ×3 (01:58→17:28)
[2021-11-24] MEDS ORDERED: LORazepam 2 MG/ML SDV VIAL IVPUSH ONE (02:11)
[2021-11-24 03:57] LABS: ARTERIAL BLD GAS O2 SATURATION 97.2 % (95-98); ARTERIAL BLOOD GAS BASE EXCESS 1.2 mmol/L (-2-2); ARTERIAL BLOOD GAS PO2 99.8 mmHg (80-100); ARTERIAL BLOOD GAS pH 7.353 (7.350-7.450)
[2021-11-24 03:58] LABS: ALLENS TEST POSITIVE
[2021-11-24 03:59] LABS: VENT MODE PSV; VENT RATE 20
[2021-11-24] MEDS: INSULIN SLIDING SCALE (NOVOLOG) 1 VIAL SQ SCH ×4 (06:30→22:32)
[2021-11-24 07:46] LABS: BASO % 0.6 % (0-2.0); EOS % 0.9 % (0-4.5); HEMATOCRIT 28.6 % (32.4-45.2); HEMOGLOBIN 9.7 GM/dL (10.7-15.3); LYMPH % 15.3 % (8-40); MCH 29.9 pg (25.7-33.7); MCHC 33.8 g/dl (32.0-36.0); MEAN CELL VOLUME 88.5 fl (80-96); MEAN PLT VOLUME 8.2 fl (7.5-11.1); MONO % 10.9 % (3.8-10.2); NEUT % 72.3 % (42.8-82.8); PLATELET COUNT 118 10^3/uL (134-434); RBC 3.24 M/mm3 (3.60-5.2); RDW 14.7 % (11.6-15.6); WHITE BLOOD COUNT 8.9 K/mm3 (4.0-10.0)
[2021-11-24 08:11] LABS: ALBUMIN 2.5 g/dl (3.4-5.0); BLOOD UREA NITROGEN 36.9 mg/dL (7-18); CALCIUM 8.9 mg/dL (8.5-10.1); MAGNESIUM 2.1 mg/dL (1.8-2.4)
[2021-11-24 08:14] LABS: CREATININE 1.6 mg/dL (0.55-1.3); PHOSPHOROUS 3.7 mg/dL (2.5-4.9)
[2021-11-24 08:16] LABS: BILIRUBIN,TOTAL 0.9 mg/dL (0.2-1); TOT PROT 5.2 g/dl (6.4-8.2)
[2021-11-24] MEDS ORDERED: DEXTROSE 5%-WATER - 50 ML IVPB ONE ×3 (10:04→17:05)
[2021-11-24] MEDS: FAMOTIDINE 20 MG/50 ML IVPB 20 MG/50 ML MG IVPB SCH ×2 (10:07→21:54)
[2021-11-24] MEDS: ENOXAPARIN NA (PORCINE) 80 MG/0.8 ML DISP.SYRIN SQ SCH ×2 (10:08→21:54)
[2021-11-24] MEDS: LACTOBACILLUS ACIDOPHILUS 1 TABLET PO SCH ×2 (10:08→16:53)
[2021-11-24] MEDS ORDERED: FUROSEMIDE 40 MG/4 ML INJECTABLE VIAL IVPUSH ONE (10:30)
[2021-11-24] MEDS: metoPROLOL SUCCINATE 25 MG TAB.SR.24H (FP) PO SCH (11:36)
[2021-11-24] MEDS: MELATONIN 5 MG TABLETS PO SCH (21:55)
[2021-11-24] MEDS: CHLORHEXIDINE GLUCONATE 4% CLEANSER FOR DECOLONIZATION TP SCH (21:55)
[2021-11-25] MEDS ORDERED: PIPERACILLIN/TAZOBACTAM 2.25 GM VIAL IVPB ONE ×3 (01:05→17:51)
[2021-11-25] MEDS ORDERED: DEXTROSE 5%-WATER - 50 ML IVPB ONE ×3 (01:05→17:52)
[2021-11-25] MEDS: PIPERACILLIN/TAZOB 2.25 GM 2.25 GM in DEXTROSE 5%-WATER - 50 ML IVPB SCH ×3 (02:47→18:14)
[2021-11-25] MEDS: INSULIN SLIDING SCALE (NOVOLOG) 1 VIAL SQ SCH ×4 (06:25→22:36)
[2021-11-25 07:55] LABS: BASO % 0.7 % (0-2.0); EOS % 4.4 % (0-4.5); HEMATOCRIT 29.4 % (32.4-45.2); HEMOGLOBIN 9.5 GM/dL (10.7-15.3); LYMPH % 17.5 % (8-40); MCH 28.7 pg (25.7-33.7); MCHC 32.3 g/dl (32.0-36.0); MEAN PLT VOLUME 8.5 fl (7.5-11.1); NEUT % 69.4 % (42.8-82.8); PLATELET COUNT 133 10^3/uL (134-434); RBC 3.31 M/mm3 (3.60-5.2); RDW 14.8 % (11.6-15.6); WHITE BLOOD COUNT 8.4 K/mm3 (4.0-10.0)
[2021-11-25 08:24] LABS: ALBUMIN 2.5 g/dl (3.4-5.0); BLOOD UREA NITROGEN 38.1 mg/dL (7-18); CALCIUM 8.6 mg/dL (8.5-10.1); MAGNESIUM 1.8 mg/dL (1.8-2.4)
[2021-11-25 08:26] LABS: CREATININE 1.5 mg/dL (0.55-1.3); PHOSPHOROUS 2.8 mg/dL (2.5-4.9)
[2021-11-25 08:27] LABS: BILIRUBIN,TOTAL 1.2 mg/dL (0.2-1)
[2021-11-25 08:28] LABS: TOT PROT 5.4 g/dl (6.4-8.2)
[2021-11-25] MEDS: LACTOBACILLUS ACIDOPHILUS 1 TABLET PO SCH (09:11)
[2021-11-25] MEDS: FAMOTIDINE 20 MG/50 ML IVPB 20 MG/50 ML MG IVPB SCH ×2 (09:11→22:35)
[2021-11-25] MEDS: ENOXAPARIN NA (PORCINE) 80 MG/0.8 ML DISP.SYRIN SQ SCH ×2 (09:47→22:35)
[2021-11-25] MEDS ORDERED: DEXTROSE 5%-WATER - 1,000 ML IV SCH (12:00)
[2021-11-25] MEDS ORDERED: hydrALAZINE HCL 20 MG/ML VIAL IVPUSH ONE (18:02)
[2021-11-25] MEDS: CHLORHEXIDINE GLUCONATE 4% CLEANSER FOR DECOLONIZATION TP SCH (22:35)
[2021-11-25] MEDS: MELATONIN 5 MG TABLETS PO SCH (22:35)
[2021-11-25] MEDS: dilTIAZem HCL 30 MG TABLET PO SCH (23:15)
[2021-11-26] MEDS: PIPERACILLIN/TAZOB 2.25 GM 2.25 GM in DEXTROSE 5%-WATER - 50 ML IVPB SCH ×2 (02:16→09:23)
[2021-11-26] MEDS: dilTIAZem HCL 30 MG TABLET PO SCH ×3 (05:14→18:50)
[2021-11-26] MEDS: INSULIN SLIDING SCALE (NOVOLOG) 1 VIAL SQ SCH ×4 (06:09→22:07)
[2021-11-26 08:05] LABS: BASO % 0.5 % (0-2.0); HEMATOCRIT 28.8 % (32.4-45.2); HEMOGLOBIN 9.5 GM/dL (10.7-15.3); LYMPH % 22.5 % (8-40); MEAN CELL VOLUME 87.8 fl (80-96); MEAN PLT VOLUME 8.3 fl (7.5-11.1); PLATELET COUNT 157 10^3/uL (134-434); RBC 3.28 M/mm3 (3.60-5.2); RDW 14.4 % (11.6-15.6); WHITE BLOOD COUNT 7.1 K/mm3 (4.0-10.0)
[2021-11-26] MEDS ORDERED: PIPERACILLIN/TAZOBACTAM 2.25 GM VIAL IVPB ONE (08:19)
[2021-11-26] MEDS ORDERED: DEXTROSE 5%-WATER - 50 ML IVPB ONE (08:20)
[2021-11-26 08:21] LABS: CHLORIDE 109 mmol/L (98-107); SODIUM 148 mmol/L (136-145)
[2021-11-26 08:29] LABS: ALBUMIN 2.5 g/dl (3.4-5.0); ANION GAP 6 MMOL/L (8-16); CALCIUM 8.6 mg/dL (8.5-10.1); CO2 33 mmol/L (21-32)
[2021-11-26 08:30] LABS: BLOOD UREA NITROGEN 33.4 mg/dL (7-18); GLUCOSE,RANDOM 149 mg/dL (74-106); MAGNESIUM 2.1 mg/dL (1.8-2.4)
[2021-11-26 08:32] LABS: CREATININE 1.2 mg/dL (0.55-1.3); PHOSPHOROUS 1.9 mg/dL (2.5-4.9)
[2021-11-26 08:33] LABS: SGOT/AST 24 U/L (15-37); SGPT/ALT 76 U/L (13-61)
[2021-11-26 08:34] LABS: TOT PROT 5.4 g/dl (6.4-8.2)
[2021-11-26 08:35] LABS: ALK PHOS 125 U/L (45-117)
[2021-11-26] MEDS: FAMOTIDINE 20 MG/50 ML IVPB 20 MG/50 ML MG IVPB SCH ×2 (09:06→21:04)
[2021-11-26] MEDS: ENOXAPARIN NA (PORCINE) 80 MG/0.8 ML DISP.SYRIN SQ SCH ×2 (09:22→22:00)
[2021-11-26] MEDS: metoPROLOL SUCCINATE 25 MG TAB.SR.24H (FP) PO SCH (09:22)
[2021-11-26] MEDS: LACTOBACILLUS ACIDOPHILUS 1 TABLET PO SCH (09:23)
[2021-11-26] MEDS ORDERED: DEXTROSE 5%-WATER - 1,000 ML IV SCH (10:30)
[2021-11-26] MEDS ORDERED: POTASSIUM PHOSPHATE 30 MM in SODIUM CHLORIDE 500 ML IVPB ONE (11:00)
[2021-11-26 11:20] VITALS: BMI 34.9
[2021-11-26] MEDS ORDERED: hydrALAZINE HCL 20 MG/ML VIAL IVPUSH ONE (20:04)
[2021-11-26] MEDS: MELATONIN 5 MG TABLETS PO SCH (21:05)
[2021-11-26] MEDS: CHLORHEXIDINE GLUCONATE 4% CLEANSER FOR DECOLONIZATION TP SCH (22:00)
[2021-11-27] MEDS: dilTIAZem HCL 30 MG TABLET PO SCH ×4 (02:10→18:16)
[2021-11-27] MEDS ORDERED: MELATONIN 5 MG TABLETS PO ONE (03:52)
[2021-11-27 07:48] LABS: BASO % 0.6 % (0-2.0); EOS % 3.7 % (0-4.5); HEMATOCRIT 29.3 % (32.4-45.2); HEMOGLOBIN 9.6 GM/dL (10.7-15.3); LYMPH % 23.7 % (8-40); MCH 28.9 pg (25.7-33.7); MCHC 32.7 g/dl (32.0-36.0); MEAN CELL VOLUME 88.5 fl (80-96); MEAN PLT VOLUME 8.3 fl (7.5-11.1); MONO % 9.2 % (3.8-10.2); NEUT % 62.8 % (42.8-82.8); PLATELET COUNT 172 10^3/uL (134-434); RBC 3.32 M/mm3 (3.60-5.2); RDW 14.7 % (11.6-15.6); WHITE BLOOD COUNT 7.2 K/mm3 (4.0-10.0)
[2021-11-27] MEDS: INSULIN SLIDING SCALE (NOVOLOG) 1 VIAL SQ SCH ×4 (08:15→23:08)
[2021-11-27 08:16] LABS: ALBUMIN 2.5 g/dl (3.4-5.0); BLOOD UREA NITROGEN 25.2 mg/dL (7-18); CALCIUM 8.5 mg/dL (8.5-10.1)
[2021-11-27 08:17] LABS: MAGNESIUM 1.8 mg/dL (1.8-2.4)
[2021-11-27 08:19] LABS: CREATININE 1.1 mg/dL (0.55-1.3); PHOSPHOROUS 2.6 mg/dL (2.5-4.9)
[2021-11-27 08:21] LABS: BILIRUBIN,TOTAL 0.9 mg/dL (0.2-1); TOT PROT 5.3 g/dl (6.4-8.2)
[2021-11-27] MEDS ORDERED: FUROSEMIDE 40 MG/4 ML INJECTABLE VIAL IVPUSH ONE ×3 (09:12→18:00)
[2021-11-27] MEDS ORDERED: LOSARTAN POTASSIUM 50 MG TABLET PO SCH (10:00)
[2021-11-27] MEDS: FAMOTIDINE 20 MG/50 ML IVPB 20 MG/50 ML MG IVPB SCH ×2 (10:25→22:59)
[2021-11-27] MEDS ORDERED: MAGNESIUM SULF 50% (8.12 MEQ/2 ML-1 GM VIAL) IVPB ONE (10:34)
[2021-11-27] MEDS: LACTOBACILLUS ACIDOPHILUS 1 TABLET PO SCH (11:00)
[2021-11-27] MEDS: APIXABAN 5 MG TABLET PO SCH ×2 (11:00→22:57)
[2021-11-27] MEDS: metoPROLOL SUCCINATE 25 MG TAB.SR.24H (FP) PO SCH (11:00)
[2021-11-27] MEDS: POTASSIUM CHLORIDE ORAL LIQUID 20 MEQ/15 ML PO ONE ×2 (11:00→11:40)
[2021-11-27] MEDS ORDERED: LABETALOL HCL 5 MG/1 ML (100MG/20 ML VIAL) IVPUSH ONE ×2 (11:30→12:01)
[2021-11-27] MEDS: KCL 10 MEQ IVPB 10 MEQ/100 ML INFUS.BAG IVPB SCH ×3 (13:00→14:45)
[2021-11-27] MEDS ORDERED: DEXMEDETOMIDINE IN 0.9 % NACL 400 MCG/100 ML VIAL IVPB SCH (13:30)
[2021-11-27] MEDS: CHLORHEXIDINE GLUCONATE 4% CLEANSER FOR DECOLONIZATION TP SCH (22:57)
[2021-11-27] MEDS: MELATONIN 5 MG TABLETS PO SCH (22:57)
[2021-11-28] MEDS: METOPROLOL TARTRATE 5 MG/5 ML VIAL IVPUSH PRN ×4 (02:19→23:20)
[2021-11-28] MEDS: dilTIAZem HCL 30 MG TABLET PO SCH ×5 (02:26→23:32)
[2021-11-28] MEDS: INSULIN SLIDING SCALE (NOVOLOG) 1 VIAL SQ SCH ×4 (06:10→22:25)
[2021-11-28 07:15] LABS: BASO % 0.5 % (0-2.0); EOS % 3.3 % (0-4.5); HEMOGLOBIN 10.4 GM/dL (10.7-15.3); LYMPH % 17.3 % (8-40); MCH 28.9 pg (25.7-33.7); MCHC 32.4 g/dl (32.0-36.0); MEAN CELL VOLUME 89.2 fl (80-96); MEAN PLT VOLUME 8.1 fl (7.5-11.1); MONO % 8.8 % (3.8-10.2); NEUT % 70.1 % (42.8-82.8); PLATELET COUNT 156 10^3/uL (134-434); RBC 3.59 M/mm3 (3.60-5.2); RDW 14.5 % (11.6-15.6)
[2021-11-28 07:34] LABS: CALCIUM 8.9 mg/dL (8.5-10.1)
[2021-11-28 07:36] LABS: ALBUMIN 2.7 g/dl (3.4-5.0); MAGNESIUM 2.3 mg/dL (1.8-2.4)
[2021-11-28 07:39] LABS: CREATININE 1.2 mg/dL (0.55-1.3); PHOSPHOROUS 3.3 mg/dL (2.5-4.9)
[2021-11-28 07:40] LABS: TOT PROT 5.6 g/dl (6.4-8.2)
[2021-11-28] MEDS ORDERED: hydrALAZINE HCL 20 MG/ML VIAL IVPUSH ONE (09:00)
[2021-11-28] MEDS: LOSARTAN POTASSIUM 50 MG TABLET PO SCH (10:54)
[2021-11-28] MEDS: APIXABAN 5 MG TABLET PO SCH ×2 (10:54→21:45)
[2021-11-28] MEDS: FAMOTIDINE 20 MG/50 ML IVPB 20 MG/50 ML MG IVPB SCH ×2 (10:54→21:45)
[2021-11-28] MEDS: metoPROLOL SUCCINATE 25 MG TAB.SR.24H (FP) PO SCH (10:54)
[2021-11-28] MEDS: LACTOBACILLUS ACIDOPHILUS 1 TABLET PO SCH (10:54)
[2021-11-28] MEDS: DEXTROSE 5%-WATER - 1,000 ML IV SCH (14:00)
[2021-11-28] MEDS: FUROSEMIDE 40 MG/4 ML INJECTABLE VIAL IVPUSH SCH (15:00)
[2021-11-28] MEDS: MELATONIN 5 MG TABLETS PO SCH (21:45)
[2021-11-28] MEDS: CHLORHEXIDINE GLUCONATE 4% CLEANSER FOR DECOLONIZATION TP SCH (21:45)
[2021-11-29] MEDS: FUROSEMIDE 40 MG/4 ML INJECTABLE VIAL IVPUSH SCH ×2 (05:35→14:03)
[2021-11-29] MEDS: dilTIAZem HCL 30 MG TABLET PO SCH ×3 (05:35→18:23)
[2021-11-29] MEDS: INSULIN SLIDING SCALE (NOVOLOG) 1 VIAL SQ SCH ×4 (06:19→21:38)
[2021-11-29 07:37] LABS: HEMATOCRIT 29.5 % (32.4-45.2); HEMOGLOBIN 9.8 GM/dL (10.7-15.3); MCH 29.2 pg (25.7-33.7); MCHC 33.3 g/dl (32.0-36.0); MEAN CELL VOLUME 87.6 fl (80-96); MEAN PLT VOLUME 8.2 fl (7.5-11.1); PLATELET COUNT 179 10^3/uL (134-434); RBC 3.37 M/mm3 (3.60-5.2); RDW 14.5 % (11.6-15.6); WHITE BLOOD COUNT 9.2 K/mm3 (4.0-10.0)
[2021-11-29 08:05] LABS: CALCIUM 8.6 mg/dL (8.5-10.1)
[2021-11-29 08:07] LABS: ALBUMIN 2.6 g/dl (3.4-5.0); BLOOD UREA NITROGEN 26.6 mg/dL (7-18)
[2021-11-29 08:10] LABS: BILIRUBIN,TOTAL 0.9 mg/dL (0.2-1); CREATININE 1.3 mg/dL (0.55-1.3); PHOSPHOROUS 2.2 mg/dL (2.5-4.9); TOT PROT 5.4 g/dl (6.4-8.2)
[2021-11-29] MEDS: LOSARTAN POTASSIUM 50 MG TABLET PO SCH (09:39)
[2021-11-29] MEDS: APIXABAN 5 MG TABLET PO SCH ×2 (09:39→21:38)
[2021-11-29] MEDS: LACTOBACILLUS ACIDOPHILUS 1 TABLET PO SCH (09:39)
[2021-11-29] MEDS: metoPROLOL SUCCINATE 25 MG TAB.SR.24H (FP) PO SCH (09:40)
[2021-11-29] MEDS: FAMOTIDINE 20 MG/50 ML IVPB 20 MG/50 ML MG IVPB SCH ×2 (09:40→21:39)
[2021-11-29] MEDS: METOPROLOL TARTRATE 5 MG/5 ML VIAL IVPUSH PRN (09:55)
[2021-11-29] MEDS ORDERED: POTASSIUM PHOSPHATE 30 MM in SODIUM CHLORIDE 250 ML IVPB ONE (10:00)
[2021-11-29] MEDS ORDERED: metoPROLOL SUCCINATE 25 MG TAB.SR.24H (FP) PO SCH (10:03)
[2021-11-29] MEDS ORDERED: NITROGLYCERIN SUBLINGUAL 1/200 0.3 MG BTL SL ONE (10:14)
[2021-11-29] MEDS ORDERED: metoPROLOL SUCCINATE 25 MG TAB.SR.24H (FP) PO ONE (10:15)
[2021-11-29] MEDS ORDERED: NITROGLYCERIN SUBLINGUAL 1/150 0.4 MG TAB ONE (10:16)
[2021-11-29] MEDS: KCL 10 MEQ IVPB 10 MEQ/100 ML INFUS.BAG IVPB SCH ×3 (14:01→16:00)
[2021-11-29] MEDS: DEXTROSE 5%-WATER - 1,000 ML IV SCH (16:45)
[2021-11-29] MEDS: CHLORHEXIDINE GLUCONATE 4% CLEANSER FOR DECOLONIZATION TP SCH (21:38)
[2021-11-29] MEDS: MELATONIN 5 MG TABLETS PO SCH (21:41)
[2021-11-30] MEDS: dilTIAZem HCL 30 MG TABLET PO SCH ×5 (00:07→23:07)
[2021-11-30] MEDS: INSULIN SLIDING SCALE (NOVOLOG) 1 VIAL SQ SCH ×4 (06:16→22:13)
[2021-11-30] MEDS: FUROSEMIDE 40 MG/4 ML INJECTABLE VIAL IVPUSH SCH (06:17)
[2021-11-30 08:09] LABS: HEMATOCRIT 29.2 % (32.4-45.2); HEMOGLOBIN 9.5 GM/dL (10.7-15.3); MCH 28.5 pg (25.7-33.7); MCHC 32.4 g/dl (32.0-36.0); MEAN PLT VOLUME 8.7 fl (7.5-11.1); PLATELET COUNT 200 10^3/uL (134-434); RBC 3.32 M/mm3 (3.60-5.2); RDW 14.9 % (11.6-15.6); WHITE BLOOD COUNT 9.6 K/mm3 (4.0-10.0)
[2021-11-30 08:34] LABS: ALBUMIN 2.4 g/dl (3.4-5.0); CALCIUM 8.4 mg/dL (8.5-10.1)
[2021-11-30 08:36] LABS: BLOOD UREA NITROGEN 28.2 mg/dL (7-18)
[2021-11-30 08:38] LABS: CREATININE 1.4 mg/dL (0.55-1.3)
[2021-11-30 08:39] LABS: TOT PROT 5.1 g/dl (6.4-8.2)
[2021-11-30] MEDS: FAMOTIDINE 20 MG/50 ML IVPB 20 MG/50 ML MG IVPB SCH ×2 (09:01→22:12)
[2021-11-30] MEDS: metoPROLOL SUCCINATE 25 MG TAB.SR.24H (FP) PO SCH (09:02)
[2021-11-30] MEDS: APIXABAN 5 MG TABLET PO SCH ×2 (09:02→22:13)
[2021-11-30] MEDS: LACTOBACILLUS ACIDOPHILUS 1 TABLET PO SCH (09:02)
[2021-11-30] MEDS: LOSARTAN POTASSIUM 50 MG TABLET PO SCH (09:02)
[2021-11-30] MEDS ORDERED: hydrALAZINE HCL 25 MG TABLET (FP) PO PRN (12:06)
[2021-11-30] MEDS: DEXTROSE 5%-WATER - 1,000 ML IV SCH (13:00)
[2021-11-30] MEDS: hydrALAZINE HCL 25 MG TABLET (FP) PO SCH (13:11)
[2021-11-30] MEDS ORDERED: MAG HYDROX/AL HYDROX/SIMETH 30 ML UNIT-DOSE CUP PO ONE (14:43)
[2021-11-30] MEDS ORDERED: NITROGLYCERIN SUBLINGUAL 1/200 0.3 MG BTL SL ONE (16:57)
[2021-11-30] MEDS: NITROGLYCERIN SUBLINGUAL 1/150 0.4 MG TAB SL ONE ×2 (18:15→18:23)
[2021-11-30] MEDS: CHLORHEXIDINE GLUCONATE 4% CLEANSER FOR DECOLONIZATION TP SCH (21:58)
[2021-11-30] MEDS: MELATONIN 5 MG TABLETS PO SCH (22:14)
[2021-12-01] MEDS: dilTIAZem HCL 30 MG TABLET PO SCH ×4 (05:28→23:32)
[2021-12-01] MEDS: ACETAMINOPHEN 1000 MG/100 ML BAG IVPB PRN ×2 (05:55→12:13)
[2021-12-01] MEDS: INSULIN SLIDING SCALE (NOVOLOG) 1 VIAL SQ SCH ×4 (06:00→21:24)
[2021-12-01 07:48] LABS: BASO % 0.7 % (0-2.0); EOS % 2.7 % (0-4.5); HEMATOCRIT 29.8 % (32.4-45.2); HEMOGLOBIN 9.8 GM/dL (10.7-15.3); LYMPH % 23.5 % (8-40); MCH 28.9 pg (25.7-33.7); MEAN CELL VOLUME 87.5 fl (80-96); MEAN PLT VOLUME 8.4 fl (7.5-11.1); MONO % 10.1 % (3.8-10.2); PLATELET COUNT 218 10^3/uL (134-434); RBC 3.41 M/mm3 (3.60-5.2); RDW 14.5 % (11.6-15.6); WHITE BLOOD COUNT 8.8 K/mm3 (4.0-10.0)
[2021-12-01 08:02] LABS: BLOOD UREA NITROGEN 22.4 mg/dL (7-18); CALCIUM 8.4 mg/dL (8.5-10.1)
[2021-12-01 08:03] LABS: ALBUMIN 2.4 g/dl (3.4-5.0); MAGNESIUM 1.9 mg/dL (1.8-2.4)
[2021-12-01 08:06] LABS: CREATININE 1.2 mg/dL (0.55-1.3)
[2021-12-01 08:08] LABS: BILIRUBIN,TOTAL 0.9 mg/dL (0.2-1); TOT PROT 5.2 g/dl (6.4-8.2)
[2021-12-01] MEDS: metoPROLOL SUCCINATE 25 MG TAB.SR.24H (FP) PO SCH (09:48)
[2021-12-01] MEDS: LACTOBACILLUS ACIDOPHILUS 1 TABLET PO SCH (09:48)
[2021-12-01] MEDS: hydrALAZINE HCL 25 MG TABLET (FP) PO SCH ×2 (09:49→21:15)
[2021-12-01] MEDS: LOSARTAN POTASSIUM 50 MG TABLET PO SCH (09:49)
[2021-12-01] MEDS: APIXABAN 5 MG TABLET PO SCH ×2 (09:49→21:15)
[2021-12-01] MEDS: FUROSEMIDE 40 MG/4 ML INJECTABLE VIAL IVPUSH SCH (09:49)
[2021-12-01] MEDS: FAMOTIDINE 20 MG/50 ML IVPB 20 MG/50 ML MG IVPB SCH (09:51)
[2021-12-01] MEDS ORDERED: ACETAMINOPHEN 325 MG TABLET (FP) PO PRN (10:33)
[2021-12-01] MEDS: MAGNESIUM OXIDE 400 MG TABLET (FP) PO SCH ×2 (10:49→21:15)
[2021-12-01] MEDS: LIDOCAINE 5% TOPICAL PATCH TP SCH (10:49)
[2021-12-01] MEDS ORDERED: POTASSIUM PHOSPHATE 30 MM in SODIUM CHLORIDE 500 ML IVPB ONE (11:30)
[2021-12-01] MEDS: LIDOCAINE PATCH REMOVAL MC SCH (21:15)
[2021-12-01] MEDS: MELATONIN 5 MG TABLETS PO SCH (21:15)
[2021-12-01] MEDS: ACETAMINOPHEN 325 MG TABLET (FP) PO PRN (21:16)
[2021-12-01] MEDS: FAMOTIDINE 20 MG/50 ML IVPB 10 MG/25 ML MG IVPB SCH (22:10)
[2021-12-02] MEDS: INSULIN SLIDING SCALE (NOVOLOG) 1 VIAL SQ SCH ×3 (06:25→17:51)
[2021-12-02 09:17] LABS: BASO % 0.9 % (0-2.0); EOS % 2.5 % (0-4.5); HEMATOCRIT 32.1 % (32.4-45.2); HEMOGLOBIN 10.5 GM/dL (10.7-15.3); LYMPH % 22.1 % (8-40); MCH 28.8 pg (25.7-33.7); MCHC 32.7 g/dl (32.0-36.0); MEAN PLT VOLUME 8.5 fl (7.5-11.1); MONO % 9.3 % (3.8-10.2); NEUT % 65.2 % (42.8-82.8); PLATELET COUNT 250 10^3/uL (134-434); RBC 3.65 M/mm3 (3.60-5.2); RDW 14.7 % (11.6-15.6); WHITE BLOOD COUNT 7.7 K/mm3 (4.0-10.0)
[2021-12-02] MEDS: LIDOCAINE 5% TOPICAL PATCH TP SCH (09:41)
[2021-12-02] MEDS: MAGNESIUM OXIDE 400 MG TABLET (FP) PO SCH ×2 (09:41→21:28)
[2021-12-02] MEDS: metoPROLOL SUCCINATE 25 MG TAB.SR.24H (FP) PO SCH (09:41)
[2021-12-02] MEDS: APIXABAN 5 MG TABLET PO SCH ×2 (09:41→21:29)
[2021-12-02] MEDS: FAMOTIDINE 20 MG/50 ML IVPB 10 MG/25 ML MG IVPB SCH (09:42)
[2021-12-02] MEDS: ACETAMINOPHEN 325 MG TABLET (FP) PO PRN ×2 (09:42→21:29)
[2021-12-02] MEDS: LACTOBACILLUS ACIDOPHILUS 1 TABLET PO SCH (09:42)
[2021-12-02] MEDS: hydrALAZINE HCL 25 MG TABLET (FP) PO SCH ×2 (09:42→21:30)
[2021-12-02] MEDS ORDERED: LOSARTAN POTASSIUM 50 MG TABLET PO SCH ×2 (10:00→14:14)
[2021-12-02 10:01] LABS: BLOOD UREA NITROGEN 21.7 mg/dL (7-18); CALCIUM 8.7 mg/dL (8.5-10.1); MAGNESIUM 2.1 mg/dL (1.8-2.4)
[2021-12-02 10:04] LABS: PHOSPHOROUS 3.1 mg/dL (2.5-4.9)
[2021-12-02 10:05] LABS: CREATININE 1.3 mg/dL (0.55-1.3)
[2021-12-02] MEDS: FUROSEMIDE 40 MG/4 ML INJECTABLE VIAL IVPUSH SCH (10:15)
[2021-12-02 10:58] LABS: INR 1.71 (0.83-1.09); PROTHROMBIN TIME (PATIENT) 19.8 SEC (9.7-13.0)
[2021-12-02 11:01] LABS: ACTIVATED PTT 31.3 SECONDS (25.2-36.5)
[2021-12-02] MEDS: METOPROLOL TARTRATE 5 MG/5 ML VIAL IVPUSH PRN ×2 (19:22→23:40)
[2021-12-02] MEDS: MELATONIN 5 MG TABLETS PO SCH (21:29)
[2021-12-02] MEDS: FAMOTIDINE 20 MG TABLET PO SCH (21:30)
[2021-12-02] MEDS: LIDOCAINE PATCH REMOVAL MC SCH (22:00)
[2021-12-03] MEDS: ACETAMINOPHEN 325 MG TABLET (FP) PO PRN ×3 (02:56→19:50)
[2021-12-03] MEDS: METOPROLOL TARTRATE 5 MG/5 ML VIAL IVPUSH PRN (04:38)
[2021-12-03] MEDS: hydrALAZINE HCL 25 MG TABLET (FP) PO SCH ×3 (05:51→21:17)
[2021-12-03] MEDS: INSULIN (LEVEMIR) 100 UNITS/ML UNITS SQ SCH (06:40)
[2021-12-03] MEDS: INSULIN SLIDING SCALE (NOVOLOG) 1 VIAL SQ SCH ×3 (06:40→16:03)
[2021-12-03 07:31] LABS: BASO % 0.9 % (0-2.0); EOS % 1.8 % (0-4.5); HEMATOCRIT 34.3 % (32.4-45.2); HEMOGLOBIN 11.2 GM/dL (10.7-15.3); LYMPH % 27.9 % (8-40); MCH 28.9 pg (25.7-33.7); MCHC 32.6 g/dl (32.0-36.0); MEAN CELL VOLUME 88.4 fl (80-96); MEAN PLT VOLUME 8.3 fl (7.5-11.1); MONO % 11.4 % (3.8-10.2); PLATELET COUNT 279 10^3/uL (134-434); RBC 3.88 M/mm3 (3.60-5.2); WHITE BLOOD COUNT 9.6 K/mm3 (4.0-10.0)
[2021-12-03 08:12] LABS: CALCIUM 9.1 mg/dL (8.5-10.1)
[2021-12-03 08:13] LABS: BLOOD UREA NITROGEN 24.5 mg/dL (7-18); MAGNESIUM 2.3 mg/dL (1.8-2.4)
[2021-12-03 08:16] LABS: CREATININE 1.5 mg/dL (0.55-1.3); PHOSPHOROUS 2.8 mg/dL (2.5-4.9)
[2021-12-03] MEDS: LIDOCAINE 5% TOPICAL PATCH TP SCH ×2 (10:22→12:28)
[2021-12-03] MEDS: MAGNESIUM OXIDE 400 MG TABLET (FP) PO SCH ×2 (10:24→21:17)
[2021-12-03] MEDS: APIXABAN 5 MG TABLET PO SCH ×2 (10:25→21:17)
[2021-12-03] MEDS: FAMOTIDINE 20 MG TABLET PO SCH ×2 (10:25→21:17)
[2021-12-03] MEDS: LACTOBACILLUS ACIDOPHILUS 1 TABLET PO SCH (10:26)
[2021-12-03] MEDS: FUROSEMIDE 40 MG/4 ML INJECTABLE VIAL IVPUSH SCH (12:23)
[2021-12-03] MEDS: metoPROLOL SUCCINATE 25 MG TAB.SR.24H (FP) PO SCH (12:26)
[2021-12-03] MEDS: dilTIAZem HCL 30 MG TABLET PO SCH ×3 (12:30→23:03)
[2021-12-03] MEDS: MELATONIN 5 MG TABLETS PO SCH (21:17)
[2021-12-03] MEDS: LIDOCAINE PATCH REMOVAL MC SCH ×2 (21:27)
[2021-12-04] MEDS ORDERED: ACETAMINOPHEN 1000 MG/100 ML BAG IVPB ONE (00:59)
[2021-12-04] MEDS ORDERED: ACETAMINOPHEN INJECTION 100 ML IVPB ONE (01:19)
[2021-12-04] MEDS: dilTIAZem HCL 30 MG TABLET PO SCH ×3 (05:26→18:02)
[2021-12-04] MEDS: hydrALAZINE HCL 25 MG TABLET (FP) PO SCH ×3 (05:26→22:13)
[2021-12-04] MEDS: INSULIN SLIDING SCALE (NOVOLOG) 1 VIAL SQ SCH ×3 (06:14→17:00)
[2021-12-04] MEDS: INSULIN (LEVEMIR) 100 UNITS/ML UNITS SQ SCH (06:14)
[2021-12-04] MEDS ORDERED: LIDOCAINE 1%/EPI 1:100000 (20 ML MULTI DOSE VIAL) ONE (07:22)
[2021-12-04] MEDS ORDERED: LIDOCAINE 1%/EPI 1:100000 (20 ML MULTI DOSE VIAL) IJ ONE ×2 (08:21)
[2021-12-04] MEDS: MAGNESIUM OXIDE 400 MG TABLET (FP) PO SCH ×2 (09:58→22:13)
[2021-12-04] MEDS: FUROSEMIDE 40 MG/4 ML INJECTABLE VIAL IVPUSH SCH (09:58)
[2021-12-04] MEDS: LIDOCAINE 5% TOPICAL PATCH TP SCH ×2 (09:58→10:08)
[2021-12-04] MEDS: metoPROLOL SUCCINATE 25 MG TAB.SR.24H (FP) PO SCH (09:58)
[2021-12-04] MEDS: FAMOTIDINE 20 MG TABLET PO SCH ×2 (09:58→22:13)
[2021-12-04] MEDS: LACTOBACILLUS ACIDOPHILUS 1 TABLET PO SCH (09:59)
[2021-12-04] MEDS ORDERED: APIXABAN 5 MG TABLET PO SCH ×2 (10:00→22:00)
[2021-12-04 11:00] LABS: EOS % 2.2 % (0-4.5); HEMATOCRIT 32.9 % (32.4-45.2); HEMOGLOBIN 10.9 GM/dL (10.7-15.3); LYMPH % 26.9 % (8-40); MCH 29.3 pg (25.7-33.7); MCHC 33.1 g/dl (32.0-36.0); MEAN CELL VOLUME 88.7 fl (80-96); MEAN PLT VOLUME 8.2 fl (7.5-11.1); MONO % 10.3 % (3.8-10.2); NEUT % 59.6 % (42.8-82.8); PLATELET COUNT 272 10^3/uL (134-434); RBC 3.71 M/mm3 (3.60-5.2); RDW 15.4 % (11.6-15.6); WHITE BLOOD COUNT 7.6 K/mm3 (4.0-10.0)
[2021-12-04 11:33] LABS: ALBUMIN 2.8 g/dl (3.4-5.0); MAGNESIUM 2.3 mg/dL (1.8-2.4)
[2021-12-04 11:36] LABS: CREATININE 1.9 mg/dL (0.55-1.3); PHOSPHOROUS 2.8 mg/dL (2.5-4.9)
[2021-12-04 11:37] LABS: BILIRUBIN,TOTAL 0.8 mg/dL (0.2-1); TOT PROT 5.9 g/dl (6.4-8.2)
[2021-12-04] MEDS: MELATONIN 5 MG TABLETS PO SCH (22:14)
[2021-12-04] MEDS: LIDOCAINE PATCH REMOVAL MC SCH (22:14)
[2021-12-05] MEDS: dilTIAZem HCL 30 MG TABLET PO SCH ×2 (00:43→06:30)
[2021-12-05] MEDS: LIDOCAINE PATCH REMOVAL MC SCH ×2 (01:41→22:22)
[2021-12-05] MEDS: hydrALAZINE HCL 25 MG TABLET (FP) PO SCH ×3 (06:30→22:21)
[2021-12-05] MEDS: INSULIN SLIDING SCALE (NOVOLOG) 1 VIAL SQ SCH ×3 (06:33→16:30)
[2021-12-05] MEDS: INSULIN (LEVEMIR) 100 UNITS/ML UNITS SQ SCH (06:33)
[2021-12-05 08:18] LABS: EOS % 2.5 % (0-4.5); HEMATOCRIT 32.7 % (32.4-45.2); HEMOGLOBIN 10.8 GM/dL (10.7-15.3); LYMPH % 31.4 % (8-40); MCH 29.1 pg (25.7-33.7); MEAN CELL VOLUME 88.4 fl (80-96); MEAN PLT VOLUME 8.2 fl (7.5-11.1); MONO % 11.4 % (3.8-10.2); NEUT % 53.7 % (42.8-82.8); PLATELET COUNT 280 10^3/uL (134-434); RDW 15.2 % (11.6-15.6); WHITE BLOOD COUNT 7.8 K/mm3 (4.0-10.0)
[2021-12-05 08:35] LABS: CALCIUM 9.2 mg/dL (8.5-10.1)
[2021-12-05 08:36] LABS: BLOOD UREA NITROGEN 33.1 mg/dL (7-18); MAGNESIUM 2.4 mg/dL (1.8-2.4)
[2021-12-05 08:39] LABS: CREATININE 1.8 mg/dL (0.55-1.3); PHOSPHOROUS 2.6 mg/dL (2.5-4.9)
[2021-12-05 08:40] LABS: BILIRUBIN,TOTAL 0.8 mg/dL (0.2-1)
[2021-12-05] MEDS ORDERED: dilTIAZem HCL 60 MG TABLET PO SCH (10:01)
[2021-12-05] MEDS ORDERED: SODIUM CHLORIDE 0.45% 1,000 ML IV SCH (10:15)
[2021-12-05] MEDS: FAMOTIDINE 20 MG TABLET PO SCH ×2 (10:23→22:21)
[2021-12-05] MEDS: MAGNESIUM OXIDE 400 MG TABLET (FP) PO SCH ×2 (10:23→22:21)
[2021-12-05] MEDS: LACTOBACILLUS ACIDOPHILUS 1 TABLET PO SCH (10:23)
[2021-12-05] MEDS: metoPROLOL SUCCINATE 25 MG TAB.SR.24H (FP) PO SCH (10:23)
[2021-12-05] MEDS: LIDOCAINE 5% TOPICAL PATCH TP SCH (10:23)
[2021-12-05] MEDS: APIXABAN 2.5 MG TABLET PO SCH ×2 (11:57→22:21)
[2021-12-05] MEDS ORDERED: INSULIN (LEVEMIR) 100 UNITS/ML UNITS SQ SCH (22:00)
[2021-12-05] MEDS: MELATONIN 5 MG TABLETS PO SCH (22:21)
[2021-12-06] MEDS: hydrALAZINE HCL 25 MG TABLET (FP) PO SCH (06:14)
[2021-12-06] MEDS: INSULIN (LEVEMIR) 100 UNITS/ML UNITS SQ SCH (06:14)
[2021-12-06] MEDS: INSULIN SLIDING SCALE (NOVOLOG) 1 VIAL SQ SCH ×3 (06:15→17:40)
[2021-12-06 08:15] LABS: BASO % 0.8 % (0-2.0); EOS % 1.9 % (0-4.5); HEMOGLOBIN 11.3 GM/dL (10.7-15.3); MCH 28.8 pg (25.7-33.7); MCHC 32.2 g/dl (32.0-36.0); MEAN CELL VOLUME 89.3 fl (80-96); MEAN PLT VOLUME 8.6 fl (7.5-11.1); MONO % 9.9 % (3.8-10.2); NEUT % 57.4 % (42.8-82.8); PLATELET COUNT 324 10^3/uL (134-434); RBC 3.92 M/mm3 (3.60-5.2); RDW 15.2 % (11.6-15.6); WHITE BLOOD COUNT 10.2 K/mm3 (4.0-10.0)
[2021-12-06 08:31] LABS: CALCIUM 9.5 mg/dL (8.5-10.1)
[2021-12-06 08:32] LABS: ALBUMIN 3.2 g/dl (3.4-5.0); BLOOD UREA NITROGEN 31.8 mg/dL (7-18); MAGNESIUM 2.8 mg/dL (1.8-2.4)
[2021-12-06 08:35] LABS: CREATININE 1.6 mg/dL (0.55-1.3); PHOSPHOROUS 2.5 mg/dL (2.5-4.9)
[2021-12-06 08:36] LABS: BILIRUBIN,TOTAL 0.8 mg/dL (0.2-1); TOT PROT 6.6 g/dl (6.4-8.2)
[2021-12-06] MEDS ORDERED: hydrALAZINE HCL 50 MG TABLET (FP) PO SCH (08:51)
[2021-12-06] MEDS ORDERED: hydrALAZINE HCL 25 MG TABLET (FP) PO ONE (10:21)
[2021-12-06] MEDS: FAMOTIDINE 20 MG TABLET PO SCH (10:37)
[2021-12-06] MEDS: APIXABAN 2.5 MG TABLET PO SCH (10:37)
[2021-12-06] MEDS: LIDOCAINE 5% TOPICAL PATCH TP SCH (10:37)
[2021-12-06] MEDS: LACTOBACILLUS ACIDOPHILUS 1 TABLET PO SCH (10:37)
[2021-12-06] MEDS: metoPROLOL SUCCINATE 25 MG TAB.SR.24H (FP) PO SCH (10:37)
[2021-12-06] MEDS: MAGNESIUM OXIDE 400 MG TABLET (FP) PO SCH (10:37)
[2021-12-06] MEDS ORDERED: GLYCERIN 1 RECTAL SUPPOSITORY, ADULT RC ONE ×2 (10:45→11:00)
[2021-12-06 15:31] VITALS: PULSE 63
[2021-12-06] MEDS ORDERED: LIDOCAINE 5% TOPICAL PATCH TP ONE (16:20)
[2021-12-06 17:39] VITALS: BP 150/62; TEMP 98.3
[2021-12-06 18:18] LABS: EPI CELLS 3 /uL (0-25.1); HYALINE CASTS 2 /uL (0-3.1); PH,URINE 6.5 (5.0-8.0); URINE APPEARANCE TURBID; URINE BACTERIA >9,000 /uL (0-1359); URINE BILIRUBIN NEGATIVE (NEGATIVE); URINE COLOR YELLOW; URINE GLUCOSE (UA) 1+ (NEGATIVE); URINE KETONE NEGATIVE (NEGATIVE); URINE LEUK ESTERASE 3+ (NEGATIVE); URINE NITRITE NEGATIVE (NEGATIVE); URINE PROTEIN 1+ (NEGATIVE); URINE RBC 49 /uL (0-23.9); URINE WBC 5179 /uL (0-25.8)
[2021-12-06] MEDS ORDERED: LIDOCAINE PATCH REMOVAL MC SCH (22:00)
== END 2021-12-06 18:03 | disposition home or self-care (01) | DRG 260 ==
LOC: JER 20:40 → JERBED 22:05 → JICU 11-19 02:39 → J4S 11-30 17:07
PROVIDERS: ADMIT Internal Medicine Pulmonary Disease; ATTEND Internal Medicine
PROC: 06HM33Z Insertion of Infusion Device into Right Femoral Vein, Percutaneous Approach (ICD-10-PCS; principal; 2021-11-18)
PROC: 0BH17EZ Insertion of Endotracheal Airway into Trachea, Via Natural or Artificial Opening (ICD-10-PCS; 2021-11-18)
PROC: 5A1945Z Respiratory Ventilation, 24-96 Consecutive Hours (ICD-10-PCS; 2021-11-18)
PROC: 0JH602Z Insertion of Monitoring Device into Chest Subcutaneous Tissue and Fascia, Open Approach (ICD-10-PCS; 2021-12-04)
DX: I46.9 Cardiac arrest, cause unspecified (principal); I50.33 Acute on chronic diastolic (congestive) heart failure; J96.01 Acute respiratory failure with hypoxia; E87.1 Hypo-osmolality and hyponatremia; E87.2 Acidosis; N17.9 Acute kidney failure, unspecified; I24.8 Other forms of acute ischemic heart disease; E87.0 Hyperosmolality and hypernatremia; R00.1 Bradycardia, unspecified; E87.5 Hyperkalemia; T46.2X5A Adverse effect of other antidysrhythmic drugs, initial encounter; G47.33 Obstructive sleep apnea (adult) (pediatric); E11.9 Type 2 diabetes mellitus without complications; E78.5 Hyperlipidemia, unspecified; D72.829 Elevated white blood cell count, unspecified; I11.0 Hypertensive heart disease with heart failure; I44.7 Left bundle-branch block, unspecified; I48.91 Unspecified atrial fibrillation; I16.0 Hypertensive urgency
CPT/HCPCS: 36415; 36600; 70450-TC; 71045-TC-FY; 74018-TC-FY; 80048; 80053; 81003; 82436; 82550; 82570; 82803; 82962; 83036; 83605; 83735; 83880; 83935; 84100; 84133; 84156; 84300; 84436; 84443; 84484; 84540; 85025; 85027; 85610; 85730; 86850; 86900; 86901; 87040; 87070; 87086; 87186; 87205; 87899; 93005; 93010; 93306-TC; 93970-TC; 94002; 94660; 94761; 97116-GP; 97161-GP; 99291; C9803; G0480; J0131; J1644; U0003; U0005